=== PATIENT | male | born 1970 | race Caucasian/White ===

== ENCOUNTER 2018-02-16 10:37 | Inpatient (IN) | payer MEDICARE, MEDICAID ==
[~2018-02-16] VITALS: Ht 172.7 cm; Wt 64.5 kg
--- NOTE | 2018-02-16 10:40 | NUR ---
PT ARRIVED BY EMS FROM [facility] ON A 0516
[2018-02-16] MEDS ORDERED: HYDR-3686 PO (11:24)
[2018-02-16] MEDS ORDERED: CLOZ200T PO (11:24)
[2018-02-16] MEDS ORDERED: CLON-528 PO (11:24)
--- NOTE | 2018-02-16 11:30 | NUR ---
PT CHANGED IN TO GREEN [facility]OT[facility] WITH ASSISTNACE FROM BROTHER CHET PT NOT ANSWERING QUESTIONS
--- NOTE | 2018-02-16 11:50 | NUR ---
ROUNDED TO EVALUATE PT
[2018-02-16 13:09] LABS: BASOPHILS # (AUTO) 0.1 X10'3 (0-0.2); BASOPHILS % (AUTO) 0.7 % (0-1); EOSINOPHILS # (AUTO) 0.1 X10'3 (0-0.9); EOSINOPHILS % (AUTO) 0.4 % (0-6); HEMATOCRIT 44.8 % (42.0-52.0); HEMOGLOBIN 14.9 g/dl (14.0-17.9); LYMPHOCYTES # (AUTO) 1.7 X10'3 (1.1-4.8); LYMPHOCYTES % (AUTO) 11.1 % (21-51); MEAN CORPUSCULAR HEMOGLOBIN 31.1 PG (27.0-31.0); MEAN CORPUSCULAR HGB CONC 33.2 % (33.0-36.5); MEAN CORPUSCULAR VOLUME 93.7 FL (78-98); MEAN PLATELET VOLUME 9.8 FL (7.4-10.4); MONOCYTES % (AUTO) 6.4 % (2-12); NEUTROPHILS # (AUTO) 12.3 X10'3 (1.8-7.7); NEUTROPHILS % (AUTO) 81.4 % (42-75); PLATELET COUNT 231 X10'3 (140-440); RED BLOOD COUNT 4.79 X10'6 (4.70-6.10); RED CELL DISTRIBUTION WIDTH 12.3 % (11.5-14.5); WHITE BLOOD COUNT 15.2 X10'3 (4.5-11.0)
[2018-02-16] MEDS ORDERED: clonazePAM 0.5mg tablet PO PRN (13:15)
[2018-02-16] MEDS ORDERED: hydrOXYzine 25 MG tablet PO PRN (13:15)
[2018-02-16 13:19] LABS: ALANINE AMINOTRANSFERASE 112 U/L (12-78); ALBUMIN 3.3 G/DL (3.4-5.0); ALBUMIN/GLOBULIN RATIO 1.3 (1.1-1.5); ALKALINE PHOSPHATASE 59 IU/L (46-116); ANION GAP 17 (8-16); ASPARTATE AMINO TRANSFERASE 200 U/L (10-37); BILIRUBIN,TOTAL 1.5 MG/DL (0.1-1.0); BLOOD UREA NITROGEN 17 MG/DL (7-18); CALCIUM 8.4 MG/DL (8.5-10.1); CHLORIDE 95 MMOL/L (99-107); CREATININE 1.06 MG/DL (0.60-1.10); ETHANOL < 0.010 GM/DL (0.0-0.010); GLUCOSE 61 MG/DL (70-104); SODIUM 134 MMOL/L (135-145); TOTAL CARBON DIOXIDE 22.5 MMOL/L (24-32); TOTAL PROTEIN 5.9 G/DL (6.4-8.2); eGFR 75 ML/MIN
--- NOTE | 2018-02-16 13:19 | NUR ---
CONTACTS FATHER RUBI AGUIRREER [phone] BROTHER IN LAW [phone] COLD PRESS OPERATOR ZAC [phone]
[2018-02-16 13:24] LABS: POTASSIUM 2.6 MMOL/L (3.5-5.1)
[2018-02-16] MEDS ORDERED: LORazepam 2 mg/ml vial IV STA (13:39)
[2018-02-16] MEDS ORDERED: LORazepam 2 mg/ml vial ONE ×2 (13:42→13:45)
[2018-02-16] MEDS ORDERED: normal saline 1000ML IV soln IVB ONE (13:45)
[2018-02-16] MEDS ORDERED: potassium Cl 20 mEq SR tablet PO ONE (13:45)
[2018-02-16] MEDS ORDERED: potassium 10mEq/100ml NS w/LIDOcaine (10mg/bag) IV ONE (13:45)
[2018-02-16] MEDS ORDERED: LORazepam 2 mg/ml vial IV ONE ×2 (14:05→16:10)
[2018-02-16 14:15] LABS: CLARITY,URINE SLIGHTLY CLOUDY (Clear); COLOR,URINE YELLOW (Yellow); GLUCOSE, URINE NEGATIVE (Neg); KETONES,URINE >=80 mg/dl (Neg); LEUKOCYTE ESTERASE ,URINE NEGATIVE (Neg); NITRITES, URINE NEGATIVE (Neg); OCCULT BLOOD,URINE LARGE (Neg); PH,URINE 5.5 (4.8-8.0); PROTEIN,URINE TRACE mg/dl (Neg); UROBILINOGEN,URINE 0.2 E.U/dL (0.2-1.0)
--- NOTE | 2018-02-16 14:19 | NUR ---
pt started to have seizures and had k of 2.6 ativan given for seizure and potassim started for k notfied and orders recived . f/c placed chest xray taken
[2018-02-16 14:20] LABS: UA COLLECTION TYPE CLN CATCH MIDSTREAM
[2018-02-16 14:21] LABS: AMORPHOUS URATES 1+; BACTERIA,URINE NONE SEEN /HPF (Neg); MUCUS STRANDS FEW /LPF (Neg); SQUAMOUS EPITHELIAL CELL,UR FEW /LPF (FEW); URINE AMPHETAMINE SCREEN NEGATIVE (Neg); URINE BARBITUATE SCREEN NEGATIVE (Neg); URINE BENZODIAZEPINES SCREEN NEGATIVE (Neg); URINE CANNABINOID SCREEN NEGATIVE (Neg); URINE COCAINE SCREEN NEGATIVE (Neg); URINE METHADONE SCREEN NEGATIVE (Neg); URINE OPIATE SCREEN NEGATIVE (Neg); URINE PHENCYCLIDINE SCREEN NEGATIVE (Neg); WBC,URINE 0-4 /HPF (0-4)
[2018-02-16 14:22] LABS: SPERM FEW /HPF (NEGATIVE)
[2018-02-16] MEDS ORDERED: dextrose 50%-water 50ml dispensing syringe IV ONE ×3 (14:28→18:50)
[2018-02-16 14:34] LABS: MAGNESIUM 2.3 MG/DL (1.5-2.4)
--- NOTE | 2018-02-16 14:50 | NUR ---
1 AMP OF D50 GIVEN FOR BLOOD SUGER OF 61
--- NOTE | 2018-02-16 15:21 | NUR ---
BLOOD SUGAR RECHECKED 91
--- NOTE | 2018-02-16 15:30 | NUR ---
pt more awake now but not following comands and keeps tring to pull at lines
[2018-02-16] MEDS ORDERED: normal saline 1000ML IV soln IV ONE (15:35)
[2018-02-16] MEDS ORDERED: CefTRIAXone 2gm/D5W 50ml 50 ML IV ONE (15:35)
--- NOTE | 2018-02-16 16:21 | NUR ---
AT BEDSIDE TO PERFORM LP
[2018-02-16] MEDS ORDERED: normal saline 1000ml 1,000 ML IV SCH (16:28)
[2018-02-16] MEDS ORDERED: acetaminophen 650mg rectal suppository RC PRN (16:30)
[2018-02-16] MEDS ORDERED: ondansetron/PF 4mg/2ml inj IV PRN (16:30)
[2018-02-16] MEDS ORDERED: mag hydrox/Alum hydrox/simeth 30ml oral suspension PO PRN (16:30)
[2018-02-16] MEDS: vancomycin/NS 1 GM ADD-VANTAGE 250 ML IV SCH (17:14)
[2018-02-16 17:21] LABS: APPEARANCE,CSF CLEAR; CSF RBC 4 /CU MM (0); CSF SUPERNATANT COLOR COLORLESS; CSF VOLUME 6 ML; CSF WBC CT 0 /CU MM (0-5); TUBE# COUNTED 1
[2018-02-16] MEDS ORDERED: acyclovir inj 1,000 MG in normal saline 250ml IV soln 230 ML IV ONE (17:30)
[2018-02-16 17:42] LABS: GLUCOSE,CSF 63 MG/DL (40-75); TOTAL PROTEIN,CSF 67 MG/DL (15-45)
[2018-02-16] MEDS ORDERED: sodium chloride inj. 154 MEQ in Dextrose 10%-water IV solution 961.5 ML IV SCH (18:20)
--- NOTE | 2018-02-16 18:51 | NUR ---
TELEPHONE CALL TO DR DOBBS AT THIS TIME REGARDING BLOOD SUGAR 54 AT THIS TIME, PER MD POLK TO ORDER D50 IVP ONCE, THEN RECHECK BS, IF BS NORMAL THEN CHANGE FLUIDS FROM D10 TO NS. IF NOT NORMAL THEN SWITCH FROM D10 TO D5.
[2018-02-16] MEDS: piperacillin/tazo 3.375gm/50ml 50 ML IV SCH (20:45)
[2018-02-16] MEDS ORDERED: clozapine 100mg tablet PO SCH (21:00)
[2018-02-16] MEDS: dextrose 5%-normal saline 1,000 ML IV SCH (22:19)
--- NOTE | 2018-02-16 23:55 | NUR ---
day reassessments not done
[2018-02-17] MEDS: acyclovir inj 1,000 MG in normal saline 250ml IV soln 230 ML IV SCH ×3 (00:04→16:20)
[2018-02-17] MEDS: piperacillin/tazo 3.375gm/50ml 50 ML IV SCH ×2 (03:26→08:53)
[2018-02-17] MEDS: vancomycin/NS 1 GM ADD-VANTAGE 250 ML IV SCH (05:19)
--- NOTE | 2018-02-17 09:17 | NUR ---
Dr. Payne at bedside.
--- NOTE | 2018-02-17 09:18 | NUR ---
blood draw for cbc not done last night,[facility] made aware,Dr. Payne aware.
[2018-02-17 09:42] LABS: BASOPHILS # (AUTO) 0.2 X10'3 (0-0.2); BASOPHILS % (AUTO) 1.5 % (0-1); EOSINOPHILS # (AUTO) 0.1 X10'3 (0-0.9); EOSINOPHILS % (AUTO) 0.4 % (0-6); HEMATOCRIT 41.8 % (42.0-52.0); HEMOGLOBIN 14.1 g/dl (14.0-17.9); LYMPHOCYTES # (AUTO) 1.5 X10'3 (1.1-4.8); LYMPHOCYTES % (AUTO) 11.1 % (21-51); MEAN CORPUSCULAR HEMOGLOBIN 31.6 PG (27.0-31.0); MEAN CORPUSCULAR HGB CONC 33.6 % (33.0-36.5); MEAN PLATELET VOLUME 9.4 FL (7.4-10.4); MONOCYTES # (AUTO) 0.9 X10'3 (0-0.9); MONOCYTES % (AUTO) 6.7 % (2-12); NEUTROPHILS # (AUTO) 10.4 X10'3 (1.8-7.7); NEUTROPHILS % (AUTO) 80.3 % (42-75); PLATELET COUNT 208 X10'3 (140-440); RED BLOOD COUNT 4.45 X10'6 (4.70-6.10); RED CELL DISTRIBUTION WIDTH 12.4 % (11.5-14.5); WHITE BLOOD COUNT 13.1 X10'3 (4.5-11.0)
[2018-02-17 10:01] LABS: ALANINE AMINOTRANSFERASE 96 U/L (12-78); ALBUMIN 2.7 G/DL (3.4-5.0); ALBUMIN/GLOBULIN RATIO 1.1 (1.1-1.5); ALKALINE PHOSPHATASE 50 IU/L (46-116); ANION GAP 17 (8-16); ASPARTATE AMINO TRANSFERASE 148 U/L (10-37); BILIRUBIN,TOTAL 1.2 MG/DL (0.1-1.0); BLOOD UREA NITROGEN 8 MG/DL (7-18); BUN/CREATININE RATIO 6.6 (5.4-32.0); CALCIUM 8.2 MG/DL (8.5-10.1); CHLORIDE 105 MMOL/L (99-107); CREATININE 1.22 MG/DL (0.60-1.10); GLUCOSE 91 MG/DL (70-104); POTASSIUM 3.1 MMOL/L (3.5-5.1); SODIUM 144 MMOL/L (135-145); TOTAL CARBON DIOXIDE 22.5 MMOL/L (24-32); TOTAL PROTEIN 5.1 G/DL (6.4-8.2); eGFR 63 ML/MIN
--- NOTE | 2018-02-17 11:01 | NUR ---
SEIZURE PADS ON.
--- NOTE | 2018-02-17 11:01 | NUR ---
PATIENT ON BED AWAKE,K 3.1,WILL REPLACE PER PROTOCOL. Addendum: 02/17/18 at 1754 by YONATAN PT NOT ON K PROTOCOL.
--- NOTE | 2018-02-17 13:45 | NUR ---
UNABLE TO OBTAIN UA PT URINATED ON FLOOR AND IS IRRATIONAL
--- NOTE | 2018-02-17 14:30 | NUR ---
PATIENT PLACED ON SOFT MITTEN RESTRAINT WITH RLE RESTRAINT SINCE PT UNCOOPERATIV PULLING LINES PER DR. DOBBS.
[2018-02-17] MEDS ORDERED: LORazepam 2 mg/ml vial IM ONE (14:45)
[2018-02-17] MEDS ORDERED: potassium Cl 20 mEq SR tablet PO PRN ×4 (15:55→17:40)
--- NOTE | 2018-02-17 16:00 | NUR ---
POTASSIUM REPLACEMENT ORDER OBTAINED.
--- NOTE | 2018-02-17 16:03 | NUR ---
PLACED A SALAZAR CATH,PATIENT TOLERATED WELL.
--- NOTE | 2018-02-17 16:08 | NUR ---
patient still kept pulling lines,paged Dr Payne to obtain an order for 4 point restraint.
--- NOTE | 2018-02-17 16:10 | NUR ---
Obtained an order for a 4 point restraint.
[2018-02-17] MEDS ORDERED: vancomycin/NS 1 GM ADD-VANTAGE 250 ML IV SCH (17:00)
[2018-02-17 17:11] LABS: CLARITY,URINE CLEAR (Clear); COLOR,URINE YELLOW (Yellow); GLUCOSE, URINE NEGATIVE (Neg); KETONES,URINE 40 mg/dl (Neg); LEUKOCYTE ESTERASE ,URINE NEGATIVE (Neg); NITRITES, URINE NEGATIVE (Neg); OCCULT BLOOD,URINE TRACE-INTACT (Neg); PROTEIN,URINE NEGATIVE (Neg); UROBILINOGEN,URINE 0.2 E.U/dL (0.2-1.0)
[2018-02-17 17:13] LABS: UA COLLECTION TYPE FOLEY CATH
[2018-02-17 17:23] LABS: BACTERIA,URINE NONE SEEN /HPF (Neg); RBC,URINE 0-2 /HPF (0-2); WBC,URINE 0-4 /HPF (0-4)
[2018-02-17 17:24] LABS: HYALINE CASTS 0-3 /LPF (NEGATIVE); SQUAMOUS EPITHELIAL CELL,UR NONE SEEN /LPF (FEW)
--- NOTE | 2018-02-17 17:51 | NUR ---
RESTRAINT ON LEFT LOWER EXTREMITY DC'D.
--- NOTE | 2018-02-17 17:53 | NUR ---
POTASSIUM REPLACEMENT NOT AVAILABLE,CALLED PHARMACY.
--- NOTE | 2018-02-17 18:00 | NUR ---
SPOKE TO DR. DOBBS REGARDING PATIENT'S DIET,STILL NPO SINCE LAST NIGHT.PER MD SHE WILL COME DOWN TO SEE PATIENT TONIGHT AND TO KEEP PATIENT NPO.
[2018-02-17] MEDS: dextrose 5%-normal saline 1,000 ML IV SCH (18:05)
--- NOTE | 2018-02-17 18:16 | NUR ---
SPOKE TO LILA CLINTON AND VIRIDIANA TO DETERMINE THAT PTS RESTRAINTS ARE NONBEHAVIORAL DUE TO BEING PLACED DUE TO PT PULLING LINES AND SALAZAR, MAKING HIM A DANGER TO SELF. Q2HR VITALS NECESSARY AT THIS POINT
--- NOTE | 2018-02-17 18:49 | NUR ---
DR DOBBS AT BEDSIDE. GAVE REPORT TO HER. STATES SOON [facility] RESUILTS PT IS MEDICALLY CLEARED TO BEHAVIORAL HEALTH
[2018-02-17] MEDS: potassium Cl 40MEQ/NS 500ml 500 ML IV PRN (18:55)
[2018-02-18] MEDS: acyclovir inj 1,000 MG in normal saline 250ml IV soln 230 ML IV SCH ×3 (00:51→14:09)
[2018-02-18] MEDS ORDERED: VANCOMYCIN LEVEL IV ONE (04:30)
--- NOTE | 2018-02-18 07:33 | NUR ---
PT RESTING IN BED, REPEATEDLY SAYING "NO" AND "I'M SORRY"/ PT WILL NOT RESPOND TO QUESTIONS, AND IS STILL IN 3 POINT RESTRAINTS WITH MITTENS. RESTRAINTS STILL INDICATED ON ASSESSMENT. RESTRAINTS RELEASED AND REPLACED. CIRULATION INTACT.
[2018-02-18] MEDS ORDERED: K and/or MAG REPLACEMENT MC SCH ×2 (08:00)
[2018-02-18] MEDS: dextrose 5%-normal saline 1,000 ML IV SCH (09:17)
[2018-02-18] MEDS ORDERED: dextrose 50%-water 50ml dispensing syringe IV ONE (09:30)
[2018-02-18 10:56] LABS: BASOPHILS # (AUTO) 0.2 X10'3 (0-0.2); BASOPHILS % (AUTO) 1.4 % (0-1); EOSINOPHILS # (AUTO) 0.1 X10'3 (0-0.9); EOSINOPHILS % (AUTO) 0.9 % (0-6); HEMATOCRIT 40.6 % (42.0-52.0); HEMOGLOBIN 13.8 g/dl (14.0-17.9); LYMPHOCYTES # (AUTO) 1.3 X10'3 (1.1-4.8); LYMPHOCYTES % (AUTO) 12.4 % (21-51); MEAN CORPUSCULAR HEMOGLOBIN 31.5 PG (27.0-31.0); MEAN CORPUSCULAR VOLUME 92.7 FL (78-98); MEAN PLATELET VOLUME 9.7 FL (7.4-10.4); MONOCYTES # (AUTO) 0.9 X10'3 (0-0.9); MONOCYTES % (AUTO) 8.7 % (2-12); NEUTROPHILS # (AUTO) 8.3 X10'3 (1.8-7.7); NEUTROPHILS % (AUTO) 76.6 % (42-75); PLATELET COUNT 213 X10'3 (140-440); RED BLOOD COUNT 4.37 X10'6 (4.70-6.10); RED CELL DISTRIBUTION WIDTH 12.2 % (11.5-14.5); WHITE BLOOD COUNT 10.8 X10'3 (4.5-11.0)
[2018-02-18 11:19] LABS: ALANINE AMINOTRANSFERASE 91 U/L (12-78); ALBUMIN 2.6 G/DL (3.4-5.0); ALKALINE PHOSPHATASE 50 IU/L (46-116); ANION GAP 17 (8-16); ASPARTATE AMINO TRANSFERASE 121 U/L (10-37); BLOOD UREA NITROGEN 5 MG/DL (7-18); BUN/CREATININE RATIO 5.4 (5.4-32.0); CALCIUM 8.3 MG/DL (8.5-10.1); CHLORIDE 108 MMOL/L (99-107); CREATININE 0.93 MG/DL (0.60-1.10); GLUCOSE 85 MG/DL (70-104); MAGNESIUM 1.9 MG/DL (1.5-2.4); POTASSIUM 3.2 MMOL/L (3.5-5.1); SODIUM 147 MMOL/L (135-145); TOTAL CARBON DIOXIDE 21.8 MMOL/L (24-32); TOTAL PROTEIN 5.2 G/DL (6.4-8.2); eGFR 87 ML/MIN
--- NOTE | 2018-02-18 12:57 | NUR ---
CALLED ABOUT IV IN MD WILMER APPROVED OF USING IV.
--- NOTE | 2018-02-18 12:57 | NUR ---
Patient in room ED 20. I have received report from Reina and had the opportunity to ask questions and assume patient care.
[2018-02-18] MEDS: K and/or MAG REPLACEMENT MC SCH (13:44)
[2018-02-18 13:55] VITALS: BP 101/54
--- NOTE | 2018-02-18 15:03 | NUR ---
Plastic Welding Machine Operator Carlitos confirmed that pt has no known allergies to medication, food, iodine, etc. She has worked with pt for over 5 years and taken to pt to all medical appointments.
[2018-02-18] MEDS: potassium Cl 40MEQ/NS 500ml 500 ML IV PRN (16:43)
[2018-02-18] MEDS ORDERED: diatr meglu/diatrizoate 30ml oral sol.-(3 dose) bottle PO PRN (17:10)
--- NOTE | 2018-02-18 18:30 | NUR ---
Patient in room PCU 3026. I have received report from [facility] and had the opportunity to ask questions and assume patient care.
[2018-02-18 19:20] VITALS: BP 124/61
--- NOTE | 2018-02-18 19:30 | NUR ---
PT NON VERBAL AT THIS TIME. WILL NOT ANSWER ANY QUESTIONS, WILL SAY HIS NAME. PT WILL OPEN HIS EYES AT TIMES. WILL NOT OPEN HIS EYES WHEN ASKED TO DO SO BY NURSING. PT CALM. NO ATTEMPTS TO PULL AT IV OR CATHETER. NO ATTEMPTS TO HARM HIMSELF OR STAFF. ORDERS FOR RESTRAINTS NOT RENEWED WITHIN 24 HOURS AND A SITTER IS PRESENT AT THE BEDSIDE. WRIST AND MITTEN RESTRAINTS REMOVED, ANKLE RESTRAINTS NOT IN PLACE UPON ASSESSMENT. WILL CONTINUE TO MONITOR POTENTIAL NEED FOR RESTRAINTS.
--- NOTE | 2018-02-18 22:30 | NUR ---
UPON ATTEMPTING TO ADMINISTER GASTROVIEW FOR CT SCAN IN AM, IT WAS OBSERVED THAT THE PT APPEARED TO BE HOLDING SOMETHING IN HIS MOUTH. PT NOT ABLE TO FOLLOW COMMANDS TO OPEN MOUTH, YANKER SUCTION PERFORMED FOR A LARGE AMOUNT OF ORAL SECRETIONS. PT UNABLE TO FOLLOW THE COMMAND TO SWALLOW HIS OWN SECRETIONS OR GASTROVIEW. DR HEWITT INFORMED OF POTENTIAL ASPIRATION RISK IN REGARDS TO GASTROVIEW, ORDERS OBTAINED TO HOLD GASTROVIEW UNTIL AM. WILL CONTINUE TO SUCTION THE PATIENT'S ORAL SECRETIONS NEEDED.
[2018-02-18] MEDS ORDERED: dextrose ORAL solution 15 GM/59 ML bottle PO PRN ×2 (22:35)
[2018-02-18] MEDS ORDERED: dextrose 50%-water 50ml dispensing syringe IV PRN ×2 (22:35)
[2018-02-18] MEDS ORDERED: glucagon, human recombinant 1mg kit SUBCUT PRN (22:35)
[2018-02-18 23:00] VITALS: BP 126/69
[2018-02-19 02:00] VITALS: BP 114/64
[2018-02-19 05:02] LABS: BASOPHILS % (AUTO) 0.4 % (0-1); EOSINOPHILS # (AUTO) 0.1 X10'3 (0-0.9); EOSINOPHILS % (AUTO) 1.1 % (0-6); HEMATOCRIT 42.2 % (42.0-52.0); HEMOGLOBIN 13.9 g/dl (14.0-17.9); LYMPHOCYTES # (AUTO) 1.2 X10'3 (1.1-4.8); LYMPHOCYTES % (AUTO) 12.8 % (21-51); MEAN PLATELET VOLUME 9.4 FL (7.4-10.4); MONOCYTES # (AUTO) 0.7 X10'3 (0-0.9); MONOCYTES % (AUTO) 7.2 % (2-12); NEUTROPHILS # (AUTO) 7.4 X10'3 (1.8-7.7); NEUTROPHILS % (AUTO) 78.5 % (42-75); PLATELET COUNT 263 X10'3 (140-440); RED BLOOD COUNT 4.49 X10'6 (4.70-6.10); RED CELL DISTRIBUTION WIDTH 12.4 % (11.5-14.5); WHITE BLOOD COUNT 9.4 X10'3 (4.5-11.0)
[2018-02-19 05:20] LABS: ALANINE AMINOTRANSFERASE 74 U/L (12-78); ALBUMIN 2.3 G/DL (3.4-5.0); ALBUMIN/GLOBULIN RATIO 0.9 (1.1-1.5); ALKALINE PHOSPHATASE 49 IU/L (46-116); ANION GAP 15 (8-16); ASPARTATE AMINO TRANSFERASE 62 U/L (10-37); BILIRUBIN,TOTAL 0.8 MG/DL (0.1-1.0); BLOOD UREA NITROGEN 5 MG/DL (7-18); BUN/CREATININE RATIO 6.1 (5.4-32.0); CHLORIDE 108 MMOL/L (99-107); CREATININE 0.82 MG/DL (0.60-1.10); GLUCOSE 93 MG/DL (70-104); SODIUM 146 MMOL/L (135-145); TOTAL CARBON DIOXIDE 22.7 MMOL/L (24-32); TOTAL PROTEIN 4.9 G/DL (6.4-8.2); eGFR > 90 ML/MIN
[2018-02-19 05:22] LABS: POTASSIUM 2.6 MMOL/L (3.5-5.1)
[2018-02-19] MEDS: dextrose 5%-normal saline 1,000 ML IV SCH (05:53)
[2018-02-19] MEDS: potassium Cl 40MEQ/NS 500ml 500 ML IV PRN ×3 (05:54→23:42)
[2018-02-19 06:00] VITALS: BP 114/68
--- NOTE | 2018-02-19 06:30 | NUR ---
Patient in room PCU 3026. I have received report from Anna EMMANUEL and had the opportunity to ask questions and assume patient care.
--- NOTE | 2018-02-19 06:45 | NUR ---
Problems reprioritized. Patient report given, questions answered & plan of care reviewed with ALBERTO.
[2018-02-19] MEDS: K and/or MAG REPLACEMENT MC SCH (08:00)
[2018-02-19] MEDS: acyclovir inj 1,000 MG in normal saline 250ml IV soln 230 ML IV SCH ×3 (08:32)
[2018-02-19] MEDS: LORazepam 2 mg/ml vial IV PRN ×2 (08:32→17:38)
[2018-02-19 10:24] LABS: CLARITY,URINE TURBID (Clear); COLOR,URINE YELLOW (Yellow); GLUCOSE, URINE NEGATIVE (Neg); KETONES,URINE >=80 mg/dl (Neg); LEUKOCYTE ESTERASE ,URINE NEGATIVE (Neg); NITRITES, URINE NEGATIVE (Neg); OCCULT BLOOD,URINE LARGE (Neg); PROTEIN,URINE TRACE mg/dl (Neg); UROBILINOGEN,URINE 0.2 E.U/dL (0.2-1.0)
[2018-02-19 10:26] LABS: UA COLLECTION TYPE NON-SPECIFIED
[2018-02-19 11:00] VITALS: BP 123/65
[2018-02-19 11:01] LABS: RBC,URINE 0-2 /HPF (0-2); WBC,URINE 0-4 /HPF (0-4)
[2018-02-19 11:02] LABS: BACTERIA,URINE NONE SEEN /HPF (Neg); SQUAMOUS EPITHELIAL CELL,UR NONE SEEN /LPF (FEW)
--- NOTE | 2018-02-19 13:05 | NUR ---
Alejandro trigger 11: Skin intact. BSS pending diet advancement per RN; currently NPO. Addendum: 02/19/18 at [address] Amended: Links added.
[2018-02-19 15:00] VITALS: BP 106/66
--- NOTE | 2018-02-19 17:03 | NUR ---
Paged Dr. Curtis: PAGER ID: [phone] MESSAGE: Anuradha [facility] [phone]. RE: Reji Sosa [phone]. Acyclovir will be D/C'd? There was a 1600 dose due. Please advise. MRI screening form completed and faxed. Will admin IV Ativan prior to imaging study. Thank you.
--- NOTE | 2018-02-19 18:00 | NUR ---
Orientee documentation: I have reviewed and agree with all interventions, assessments performed and documented by Jenna EMMANUEL. Orintee Medication Administration: For this medication-pass time frame, all medication were reviewed, dispensed, administered and documented per hospital policy by Jenna EMMANUEL
--- NOTE | 2018-02-19 18:30 | NUR ---
Problems reprioritized. Patient report given, questions answered & plan of care reviewed with Vicky EMMANUEL.
[2018-02-19 23:00] VITALS: BP 100/63
[2018-02-20 03:00] VITALS: BP 123/64
[2018-02-20 05:08] LABS: BASOPHILS % (AUTO) 0.3 % (0-1); EOSINOPHILS # (AUTO) 0.1 X10'3 (0-0.9); EOSINOPHILS % (AUTO) 0.8 % (0-6); HEMATOCRIT 37.7 % (42.0-52.0); HEMOGLOBIN 12.9 g/dl (14.0-17.9); LYMPHOCYTES # (AUTO) 1.4 X10'3 (1.1-4.8); LYMPHOCYTES % (AUTO) 16.2 % (21-51); MEAN CORPUSCULAR HEMOGLOBIN 31.8 PG (27.0-31.0); MEAN CORPUSCULAR HGB CONC 34.2 % (33.0-36.5); MEAN CORPUSCULAR VOLUME 92.9 FL (78-98); MEAN PLATELET VOLUME 9.9 FL (7.4-10.4); MONOCYTES # (AUTO) 0.7 X10'3 (0-0.9); MONOCYTES % (AUTO) 7.9 % (2-12); NEUTROPHILS # (AUTO) 6.7 X10'3 (1.8-7.7); NEUTROPHILS % (AUTO) 74.8 % (42-75); PLATELET COUNT 235 X10'3 (140-440); RED BLOOD COUNT 4.06 X10'6 (4.70-6.10); RED CELL DISTRIBUTION WIDTH 12.3 % (11.5-14.5); WHITE BLOOD COUNT 8.9 X10'3 (4.5-11.0)
[2018-02-20 05:16] LABS: ALANINE AMINOTRANSFERASE 64 U/L (12-78); ALBUMIN 2.3 G/DL (3.4-5.0); ALBUMIN/GLOBULIN RATIO 0.9 (1.1-1.5); ALKALINE PHOSPHATASE 46 IU/L (46-116); ANION GAP 15 (8-16); ASPARTATE AMINO TRANSFERASE 45 U/L (10-37); BILIRUBIN,TOTAL 0.7 MG/DL (0.1-1.0); BLOOD UREA NITROGEN 7 MG/DL (7-18); BUN/CREATININE RATIO 8.2 (5.4-32.0); CHLORIDE 112 MMOL/L (99-107); CREATININE 0.85 MG/DL (0.60-1.10); GLUCOSE 85 MG/DL (70-104); MAGNESIUM 1.7 MG/DL (1.5-2.4); POTASSIUM 3.5 MMOL/L (3.5-5.1); SODIUM 147 MMOL/L (135-145); TOTAL CARBON DIOXIDE 20.3 MMOL/L (24-32); eGFR > 90 ML/MIN
[2018-02-20 06:00] VITALS: BP 121/58
--- NOTE | 2018-02-20 06:10 | NUR ---
Problems reprioritized. Patient report given, questions answered & plan of care reviewed with Anuradha EMMANUEL.
--- NOTE | 2018-02-20 06:11 | NUR ---
Problems reprioritized. Patient report given, questions answered & plan of care reviewed with Anuradha EMMANUEL. [place] documentation: I have reviewed and agree with all interventions, assessments performed and documented by Corazon EMMANUEL.
--- NOTE | 2018-02-20 06:12 | NUR ---
pt rested throughout night, got a bit restless this am, was hitting himself in the head this am and hitting his head on the bed. Sitter at bedside. IV in right tibia, SCD sleeve over IV for protection but not turned on.
--- NOTE | 2018-02-20 06:20 | NUR ---
Patient in room PCU 3026. I have received report from Andrew EMMANUEL and had the opportunity to ask questions and assume patient care. Patient in bed. Hitting head with fists. Will continue to monitor. Will look at emar and see if there are any PRN meds for agitation.
[2018-02-20] MEDS: K and/or MAG REPLACEMENT MC SCH (08:00)
[2018-02-20 08:48] LABS: CSF WEST NILE VIRUS, IGG Negative (Negative)
[2018-02-20] MEDS: dextrose 5%-normal saline 1,000 ML IV SCH (09:29)
[2018-02-20 11:00] VITALS: BP 100/58
[2018-02-20 11:20] LABS: CSF WEST NILE VIRUS, IGM Negative (Negative); VDRL, CSF Non Reactive (Non Rea:<1:1)
--- NOTE | 2018-02-20 16:33 | NUR ---
SS met w/pt at bedside, pt alert but very disoriented, cannot respond to verbal directions, does not seem to recognize his name being called or names of relatives. Pt also appears to exhibit bxs commonly associated w/catatonia-akinetic type (no eye contact, incontinence, hydration via IV line as pt does not eat/drinks, staring at time, mumbling to self, and purposeless movements of arms). T/C w/family member, sister reports that pt has been diagnosed w/schizophrenia at age 23, has had multiple admissions to [facility] in [facility], at one time was conserved (LPS) and pt's father was the conservator. Pt's sister also reports that pt had been doing fairly well for past 10 years, family noted something off this last , last Monday pt presented @ [facility] and was 5150'd but brought to [facility] for medical clearance. Per consultation w/attending physician, pt is medically cleared for d/c, SS will facilitate access to [facility] for 5150 re-eval due to pt being gravely disabled as a result of his MH condition. SS will also contact pt's [facility] manager field service tomorrow to coordinate pt's access to additional support services via [facility]-possibly care home placement.
[2018-02-20 17:00] VITALS: BP 113/61
--- NOTE | 2018-02-20 18:30 | NUR ---
Patient in room PCU 3026. I have received report from Tami Robles and had the opportunity to ask questions and assume patient care WITH YECENIA ROBLES
[2018-02-20 19:11] LABS: HSV 1 PCR Negative (Negative); HSV 2 PCR Negative (Negative)
--- NOTE | 2018-02-20 21:30 | NUR ---
iv IN RIGHT LEG INFILTRATED. NEW piv STARTED RIGHT FOREARM, 3 ATTEMPTS. PT YELLED OUT IN PAIN DURING IV ATTEMPTS AND SAID "I AM SCARED" TWICE. ATTEMPTED TO REASSURE PATIENT, NO CLEAR SIGN THAT HE UNDERSTOOD.
[2018-02-21] MEDS: LORazepam 2 mg/ml vial IV PRN ×2 (00:33→21:39)
--- NOTE | 2018-02-21 00:33 | NUR ---
NOTIFIED BY SITTER THAT AGITATION WAS INCREASING AND PATIENT WAS HITTING HIMSELF IN THE HEAD FAIRLY HARD. ATIVAN GIVEN. ATTEMPTED TO GET PATIENT TO VERBALIZE PROBLEM, WHETHER HE HAD PAIN OR HEADACHE OR WAS JUST RESTLESS, BUT HE DID NOT ANSWER ANY QUESTIONS.
--- NOTE | 2018-02-21 00:51 | NUR ---
Notified Janice WONG about IV infiltrated that still leaking since 2129
[2018-02-21 03:00] VITALS: BP 104/53
[2018-02-21 05:01] LABS: BASOPHILS % (AUTO) 0.4 % (0-1); EOSINOPHILS # (AUTO) 0.1 X10'3 (0-0.9); EOSINOPHILS % (AUTO) 0.9 % (0-6); HEMATOCRIT 36.5 % (42.0-52.0); HEMOGLOBIN 12.6 g/dl (14.0-17.9); LYMPHOCYTES # (AUTO) 1.9 X10'3 (1.1-4.8); LYMPHOCYTES % (AUTO) 23.7 % (21-51); MEAN CORPUSCULAR HEMOGLOBIN 32.4 PG (27.0-31.0); MEAN CORPUSCULAR HGB CONC 34.6 % (33.0-36.5); MEAN CORPUSCULAR VOLUME 93.7 FL (78-98); MEAN PLATELET VOLUME 9.1 FL (7.4-10.4); MONOCYTES # (AUTO) 0.8 X10'3 (0-0.9); MONOCYTES % (AUTO) 9.7 % (2-12); NEUTROPHILS # (AUTO) 5.2 X10'3 (1.8-7.7); NEUTROPHILS % (AUTO) 65.3 % (42-75); PLATELET COUNT 198 X10'3 (140-440); RED CELL DISTRIBUTION WIDTH 13.3 % (11.5-14.5); WHITE BLOOD COUNT 7.9 X10'3 (4.5-11.0)
[2018-02-21 05:13] LABS: ALANINE AMINOTRANSFERASE 54 U/L (12-78); ALBUMIN 2.3 G/DL (3.4-5.0); ALBUMIN/GLOBULIN RATIO 0.9 (1.1-1.5); ALKALINE PHOSPHATASE 44 IU/L (46-116); ANION GAP 11 (8-16); ASPARTATE AMINO TRANSFERASE 29 U/L (10-37); BILIRUBIN,TOTAL 0.6 MG/DL (0.1-1.0); BLOOD UREA NITROGEN 12 MG/DL (7-18); CALCIUM 7.9 MG/DL (8.5-10.1); CHLORIDE 114 MMOL/L (99-107); CREATININE 0.92 MG/DL (0.60-1.10); GLUCOSE 101 MG/DL (70-104); MAGNESIUM 1.8 MG/DL (1.5-2.4); POTASSIUM 3.1 MMOL/L (3.5-5.1); SODIUM 148 MMOL/L (135-145); TOTAL CARBON DIOXIDE 23.3 MMOL/L (24-32); TOTAL PROTEIN 4.9 G/DL (6.4-8.2); eGFR 88 ML/MIN
[2018-02-21] MEDS: dextrose 5%-normal saline 1,000 ML IV SCH (05:29)
--- NOTE | 2018-02-21 05:39 | NUR ---
DID ORAL CARE WITH PATIENT, HE SEEMED TO LIKE THE LEMON SWABS. TRIED A SPOONFUL OF WATER AND HE SPIT IT OUT. TRIED ONE ICE CHIP AND ALTHOUGH HE LIKED IT ON HIS LIPS, ONCE IT WAS IN HIS MOUTH HE SPIT IT OUT. SALAZAR DRAINING JEANETTE URINE.
[2018-02-21 06:00] VITALS: BP 111/59
--- NOTE | 2018-02-21 06:22 | NUR ---
oRIENTEE documentation: I have reviewed and agree with all interventions, assessments performed and documented by YECENIA EMMANUEL.
--- NOTE | 2018-02-21 06:23 | NUR ---
Problems reprioritized. Patient report given, questions answered & plan of care reviewed with Tami goldstein.
--- NOTE | 2018-02-21 06:23 | NUR ---
Problems reprioritized. Patient report given, questions answered & plan of care reviewed with Carmen EMMANUEL.
--- NOTE | 2018-02-21 06:31 | NUR ---
Patient in room PCU 3026. I have received report from Vicky EMMANUEL and had the opportunity to ask questions and assume patient care. Patient resting comfortably and in no acute distress. Will continue to monitor.
--- NOTE | 2018-02-21 09:20 | NUR ---
Paged Dr. Curtis: PAGER ID: [phone] MESSAGE: Anuradha U [phone]. RE: Reji Sosa [phone]. Patient K:3.1. No replacement protocol orders active in eMar. Can you place new orders for K/Mg? Thank you.
[2018-02-21] MEDS ORDERED: potassium Cl 40MEQ/NS 500ml 500 ML IV PRN ×2 (10:30)
[2018-02-21] MEDS ORDERED: magnesium 4gm in 100ml NS 100 ML IV PRN (10:30)
[2018-02-21 11:00] VITALS: BP 119/55
[2018-02-21] MEDS: Potassium Cl inj 20 MEQ in dextrose 5%-water 990 ML IV SCH ×2 (14:04→23:39)
[2018-02-21 15:00] VITALS: BP_SYST 117; BP_SYST 119; BP_DIAS 55; BP_DIAS 62
[2018-02-21 18:00] VITALS: BP 125/68
--- NOTE | 2018-02-21 18:30 | NUR ---
Orientee documentation: I have reviewed and agree with all interventions, assessments performed and documented by Fara EMMANUEL. Orientee Medication Administration: For this medication-pass time frame, all medication were reviewed, dispensed, administered and documented per hospital policy by LIEN Chaudhari.
--- NOTE | 2018-02-21 18:45 | NUR ---
Patient in room PCU 3026. I have received report from Susan EMMANUEL and had the opportunity to ask questions and assume patient care.
[2018-02-21] MEDS ORDERED: CLOZAPINE PO SCH (20:00)
[2018-02-21 22:00] VITALS: BP 124/68
[2018-02-22 02:00] VITALS: BP 117/66
[2018-02-22 06:00] VITALS: BP 112/64
[2018-02-22 06:06] LABS: MAGNESIUM 1.8 MG/DL (1.5-2.4); POTASSIUM 3.3 MMOL/L (3.5-5.1)
--- NOTE | 2018-02-22 06:44 | NUR ---
Problems reprioritized. Patient report given, questions answered & plan of care reviewed with Gauri EMMANUEL.
[2018-02-22] MEDS: LORazepam 2 mg/ml vial IV PRN ×2 (06:52→19:53)
[2018-02-22] MEDS: Potassium Cl inj 20 MEQ in dextrose 5%-water 990 ML IV SCH ×2 (09:30→20:05)
--- NOTE | 2018-02-22 10:00 | NUR ---
Spoke with Dr. Saavedra in regards to patient's potassium level of 3.3, per Dr. Saavedra, just continue with the D% 20 meq of K+. Will continue to monitor.
[2018-02-22] MEDS: CLOZAPINE 25 MG oral disintegrating tablet PO SCH ×2 (10:44→20:19)
[2018-02-22 11:00] VITALS: BP 132/86
--- NOTE | 2018-02-22 11:15 | NUR ---
SS accompanied CM to meet pt @ bedside, pt was not alert/oriented at all, did respond to his name being called, exhibited involuntary & purposeless movements-legs & head, unable to follow/respond to verbal commands. SS consulted w/[facility] to advocate for pt to be 5150 so he can access emergent MH treatment via a PHF admission. Per consultation, [facility] clinician reports that pt was seen by [facility] yesterday & in consultation w/[facility] PA & hospitalist, the hospital would order additional tests & [facility] recommended administration of Ativan via IV in an attempt to address pt's catatonia sxs. [facility] clinician is advocating for pt to receive additional testing to r/o possible medical cause(s) for the catatonia, and therefore, will not provide 5150 eval at this time. SS contacted [facility] & [facility] to consult re options to support family & pt. Per consultation, SS contacted pt's brother and provided information re obtaining an emergency conservatorship from the Court so family can provide consent for MH treatment or PHF admission. Pt's brother will got to court and file for an emergency conservatorship and fax it to the nursing station. Plan: SS will continue to monitor & engage w/pt's family & community support system and involve them in dcp activities. Once an emergency conservatorship is granted, SS will contact [facility] to see if pt can access a Medicare bed in [facility].
--- NOTE | 2018-02-22 12:09 | NUR ---
PAGER ID: [phone] MESSAGE: [phone] (B) Reji Sosa Did you want to switch IV fluid to D5 half NS? Can I renew lab orders (CBC and CMP). Thank you, #[phone]
--- NOTE | 2018-02-22 13:32 | NUR ---
SS met w/pt's family members to f/u on their efforts to obtain an emergency conservatorship from the Court, per discussion they were not granted one. However, [facility] did provide a 5150 eval for pt and pt is now on a 5150 Hold pending PHF placement. [facility] is unable to accept pt due to pt's needs for IV hydration, [facility] will provide referral for PHF placement. SS will continue to monitor and facilitate/coordinate pt's transfer to a PHF when one accepts him.
--- NOTE | 2018-02-22 14:41 | NUR ---
Initial: Pt admitted d/t AMS with underlying chronic psychiatric disorder. Per MD progress notes pt likely with severe catatonia. Pt has been NPO since admit, now on day six. Pt with multiple BSS by ADULT DAYCARE COORDINATOR with recs for NPO with alt nutrition. MD notes suggest possibility of TPN, however recommend Corpak for nutrition support to preserve gut integrity, MD and RN notified of this recommendation. Recommendations below for if pt to receive TF for full nutrition. Current documented wt likely inaccurate as pt went from 65 kg to 143 kg in one day. Updated BMI with wt of 65 kg is 21.8. D/t pt with poor PO intake and documented decrease in muscle strength pt meets criteria for malnutrition, MD notified. Will continue to follow. Recommendations: 1) If pt to get tube feed, recommend Jevity 1.2 with goal rate of 60 mL/hr 2) If above, prealbumin q M/TH and daily wt Addendum: 02/22/18 at [address] Amended: Links added.
[2018-02-22 15:00] VITALS: BP 103/63
[2018-02-22 18:00] VITALS: BP 120/78
--- NOTE | 2018-02-22 18:21 | NUR ---
Problems reprioritized. Patient report given, questions answered & plan of care reviewed with Araceli EMMANUEL .
--- NOTE | 2018-02-22 19:25 | NUR ---
Patient in room PCU 3026. I have received report from Gauri EMMANUEL and had the opportunity to ask questions and assume patient care.
[2018-02-22 22:00] VITALS: BP 111/79
--- NOTE | 2018-02-22 23:28 | NUR ---
Called Dr. Camacho because patient was confused and had pulled out his IV. Patient was attempting to pull out lopez catheter as well, but was prevented by sitter. Patient was also attempting to climb out of bed, chaim says. Dr. Camacho ordered restraints per our telephone conversation.
[2018-02-23] MEDS: LORazepam 2 mg/ml vial IV PRN ×2 (01:58→17:38)
[2018-02-23 03:00] VITALS: BP 127/74
--- NOTE | 2018-02-23 03:46 | NUR ---
Order received for 2 point restraints. Pt pulled out 22g IV that had D5W with 20 meq K running at 100. 22g in right hand has been placed
[2018-02-23] MEDS: Potassium Cl inj 20 MEQ in dextrose 5%-water 990 ML IV SCH ×2 (05:15→11:14)
--- NOTE | 2018-02-23 06:24 | NUR ---
cheese cooker: I have reviewed and agree with all interventions, assessments performed and documented by Ezekiel EMMANUEL. Student Medication Administration: For this medication-pass time frame, all medication were reviewed, dispensed, administered and documented per hospital policy by Ezekiel EMMANUEL.
--- NOTE | 2018-02-23 06:34 | NUR ---
Problems reprioritized. Patient report given, questions answered & plan of care reviewed with Gauri EMMANUEL.
--- NOTE | 2018-02-23 06:39 | NUR ---
Patient in room PCU 3026. I have received report from Araceli EMMANUEL and had the opportunity to ask questions and assume patient care. Sitter is in room, 2 point restraints to the left and right wrist, pt is resting at this time. Will continue to monitor.
--- NOTE | 2018-02-23 07:19 | NUR ---
PAGER ID: [phone] MESSAGE: CRITICAL LAB [id number] Reji Sosa Critical low potassium level of 3.0.. Thank you, Gauri #[phone]
[2018-02-23] MEDS: CLOZAPINE 25 MG oral disintegrating tablet PO SCH ×2 (08:16→19:54)
[2018-02-23 11:00] VITALS: BP 105/65
--- NOTE | 2018-02-23 13:07 | NUR ---
SS attempted to rouse pt to complete pscychosocial. Pt continues to be unresponsive. T/C with [facility] Core Machine Tender- Anu Farr [phone] to engage them in dcp. SS stressed the need of pt needing a living situation with additional support as it is unclear how long pt will remain in a contonic state, and since there are no acute medical issues requiring continued hospitalization, pt needs to be returned to his home. SS utilized SC strategies to engage [facility] in dicussion re placement options for pt in the event that he does not get admitted to a psych hospital or post psych admission and continues to be in a catatonic state. Per discussion [facility] does have some placement facilities that have nurses on staff, but access to these are limited to individuals w/developmental disability, SS also discussed the possibility of a snf and pt can access appropriate home healthcare services. [facility] states that it is ultimately the family's decision.
[2018-02-23 15:00] VITALS: BP 101/73
--- NOTE | 2018-02-23 17:49 | NUR ---
Pt was restless, trying to pull out IV, and hitting himself. Pt does not follow commands. Administered Ativan per MD order. Will continue to monitor.
--- NOTE | 2018-02-23 18:15 | NUR ---
Patient in room PCU 3026. I have received report from Gauri EMMANUEL and had the opportunity to ask questions and assume patient care.
--- NOTE | 2018-02-23 18:27 | NUR ---
Problems reprioritized. Patient report given, questions answered & plan of care reviewed with Cam EMMANUEL.
[2018-02-23 19:00] VITALS: BP 106/70
[2018-02-23 23:00] VITALS: BP 98/66
[2018-02-24] MEDS: Potassium Cl inj 20 MEQ in dextrose 5%-water 990 ML IV SCH ×3 (01:15→21:15)
--- NOTE | 2018-02-24 02:15 | NUR ---
Spoke with Dr. Florez. Spoke with Dr. Florez via telephone regarding patient pulling out IV and having difficulty obtaining access again. Informed Dr. Florez of critical potassium level of 3.0. Dr. Florez ordered discontinuing NPO and starting a regular diet. Dr. Florez also ordered 40 mEq PO potassium supplement to correct 3.0 potassium value.
[2018-02-24] MEDS ORDERED: potassium Cl 20 mEq SR tablet PO PRN ×2 (02:20)
[2018-02-24] MEDS ORDERED: magnesium Cl slow-release 64mg tablet PO PRN (02:20)
[2018-02-24] MEDS ORDERED: magnesium 4gm in 100ml NS 100 ML IV PRN (02:20)
[2018-02-24] MEDS ORDERED: potassium Cl 40MEQ/NS 500ml 500 ML IV PRN ×2 (02:20)
--- NOTE | 2018-02-24 06:25 | NUR ---
Problems reprioritized. Patient report given, questions answered & plan of care reviewed with Regulo RN.
--- NOTE | 2018-02-24 06:30 | NUR ---
Patient in room PCU 3012. I have received report from Cam EMMANUEL and had the opportunity to ask questions and assume patient care.
[2018-02-24 06:43] VITALS: BP 106/76
[2018-02-24] MEDS ORDERED: haloperidol lactate 5mg/ml inj IM ONE (06:45)
[2018-02-24] MEDS ORDERED: diphenhydrAMINE 50 mg/ml inj IM ONE (06:45)
--- NOTE | 2018-02-24 06:48 | NUR ---
Spoke to Dr. Florez Called Dr. Florez to request restraint renewal. Dr. Florez renewed restraints as well as ordered 5mg Haldol IM with 50 mg Benadryl IM.
[2018-02-24] MEDS: CLOZAPINE 25 MG oral disintegrating tablet PO SCH ×4 (08:00→23:04)
[2018-02-24 11:00] VITALS: BP 100/71
[2018-02-24 15:00] VITALS: BP 101/68
--- NOTE | 2018-02-24 18:07 | NUR ---
Spoke with Physician and notified that patient has not voided, but has not experienced and discomfort during palpation. Physia Addendum: 02/24/18 at 1809 by Meng Chambers RN Physician gave no new orders and continue to monitor at this time.
--- NOTE | 2018-02-24 18:09 | NUR ---
Notified physicain that restraint orders need to be laney that were received by the previous shift.
--- NOTE | 2018-02-24 18:30 | NUR ---
Problems reprioritized. Patient report given, questions answered & plan of care reviewed with Marely EMMANUEL.
--- NOTE | 2018-02-24 18:30 | NUR ---
Patient in room PCU 3012. I have received report from Regulo EMMANUEL and had the opportunity to ask questions and assume patient care.
[2018-02-24 19:00] VITALS: BP 106/53
[2018-02-24 22:00] VITALS: BP 103/73
[2018-02-25 02:30] VITALS: BP 103/69
[2018-02-25 06:00] VITALS: BP 100/67
--- NOTE | 2018-02-25 06:20 | NUR ---
Problems reprioritized. Patient report given, questions answered & plan of care reviewed with Heather RN.
--- NOTE | 2018-02-25 06:20 | NUR ---
Patient in room PCU 3012. I have received report from LIEN Yap and had the opportunity to ask questions and assume patient care.
[2018-02-25 06:21] LABS: MAGNESIUM 2.2 MG/DL (1.5-2.4); POTASSIUM 3.8 MMOL/L (3.5-5.1)
[2018-02-25] MEDS: Potassium Cl inj 20 MEQ in dextrose 5%-water 990 ML IV SCH ×2 (07:02→17:49)
[2018-02-25] MEDS: CLOZAPINE 25 MG oral disintegrating tablet PO SCH (07:04)
[2018-02-25 11:00] VITALS: BP 97/72
--- NOTE | 2018-02-25 12:34 | NUR ---
reassessment: [employer] regarding nutrition support given day 9 NPO/refusing meals r/t catatonia and PROCESS EXPERT recs alternative nutrition since first BSS. IF catatonia persists pt would benefit from PEG feeds for long-term nutrition needs. Receiving KCl/dex. LBM 02/22. Current wt is an error w/ wt in pounds currently listed as in kg. JC faxed clinical pharmacist in hopes to correct given meds are dosed based on wt and unable to reach RN. Will monitor for nutrition support approval per MD; recs below using accurate wt. Recommendations: 1) If corpak/PEG tube feeds, recommend Jevity 1.2 at 60 mL/hr goal 2) If above, prealbumin q M/ and daily wt 3) wt correction Addendum: 02/25/18 at [address] Amended: Links added.
[2018-02-25 15:00] VITALS: BP 99/68
[2018-02-25 18:00] VITALS: BP 98/63
[2018-02-25] MEDS: clozapine 25mg tablet PO SCH (21:00)
[2018-02-25] MEDS ORDERED: CLOZAPINE PO SCH (21:00)
--- NOTE | 2018-02-25 21:31 | NUR ---
Patient in room U 3012. I have received report from LIEN Romero and had the opportunity to ask questions and assume patient care. Addendum: 02/25/18 at 2132 by Monika Robles RN Amended: Links added.
[2018-02-25 22:00] VITALS: BP 104/62
[2018-02-25] MEDS: LORazepam 2 mg/ml vial IV PRN (22:18)
[2018-02-26 02:00] VITALS: BP 100/59
[2018-02-26] MEDS: Potassium Cl inj 20 MEQ in dextrose 5%-water 990 ML IV SCH ×2 (02:42→13:06)
--- NOTE | 2018-02-26 06:05 | NUR ---
Patient in room PCU 3012. I have received report from LIEN Frank and had the opportunity to ask questions and assume patient care.
--- NOTE | 2018-02-26 06:19 | NUR ---
Problems reprioritized. Patient report given, questions answered & plan of care reviewed with LIEN Adler. Addendum: 02/26/18 at 0619 by Monika Robles RN Amended: Links added.
[2018-02-26 06:28] LABS: MAGNESIUM 2.2 MG/DL (1.5-2.4); POTASSIUM 3.7 MMOL/L (3.5-5.1)
[2018-02-26 06:30] VITALS: BP 92/58
[2018-02-26] MEDS ORDERED: CLOZAPINE PO SCH (08:00)
[2018-02-26] MEDS: clozapine 25mg tablet PO SCH ×2 (08:00→21:00)
[2018-02-26 10:22] LABS: ALANINE AMINOTRANSFERASE 43 U/L (12-78); ALBUMIN 2.9 G/DL (3.4-5.0); ALBUMIN/GLOBULIN RATIO 0.9 (1.1-1.5); ALKALINE PHOSPHATASE 75 IU/L (46-116); ANION GAP 10 (8-16); ASPARTATE AMINO TRANSFERASE 29 U/L (10-37); BILIRUBIN,TOTAL 0.7 MG/DL (0.1-1.0); BLOOD UREA NITROGEN 7 MG/DL (7-18); BUN/CREATININE RATIO 6.4 (5.4-32.0); CALCIUM 8.6 MG/DL (8.5-10.1); CHLORIDE 104 MMOL/L (99-107); CREATININE 1.09 MG/DL (0.60-1.10); GLUCOSE 118 MG/DL (70-104); SODIUM 138 MMOL/L (135-145); TOTAL CARBON DIOXIDE 24.4 MMOL/L (24-32); eGFR 72 ML/MIN
[2018-02-26 10:24] LABS: POTASSIUM 4.3 MMOL/L (3.5-5.1)
[2018-02-26 10:30] LABS: BASOPHILS % (AUTO) 0.3 % (0-1); EOSINOPHILS # (AUTO) 0.2 X10'3 (0-0.9); EOSINOPHILS % (AUTO) 1.7 % (0-6); HEMOGLOBIN 15.3 g/dl (14.0-17.9); LYMPHOCYTES # (AUTO) 1.8 X10'3 (1.1-4.8); LYMPHOCYTES % (AUTO) 17.8 % (21-51); MEAN CORPUSCULAR HEMOGLOBIN 31.5 PG (27.0-31.0); MEAN CORPUSCULAR HGB CONC 33.9 % (33.0-36.5); MEAN CORPUSCULAR VOLUME 92.9 FL (78-98); MEAN PLATELET VOLUME 8.9 FL (7.4-10.4); MONOCYTES # (AUTO) 0.8 X10'3 (0-0.9); MONOCYTES % (AUTO) 8.1 % (2-12); NEUTROPHILS # (AUTO) 7.4 X10'3 (1.8-7.7); NEUTROPHILS % (AUTO) 72.1 % (42-75); PLATELET COUNT 271 X10'3 (140-440); RED BLOOD COUNT 4.84 X10'6 (4.70-6.10); RED CELL DISTRIBUTION WIDTH 13.2 % (11.5-14.5); WHITE BLOOD COUNT 10.3 X10'3 (4.5-11.0)
--- NOTE | 2018-02-26 11:23 | NUR ---
SS met w/pt at bedside, alert and able to respond to name being called, understood that he's in the hospital and able to choose not to engage with SS. SS contacted family, requesting that they come in and participate in discussion re d/c-ing pt to [facility] for psychiatric treatment, as pt will need to voluntarily agree to go there in order to access Medicare bed, if pt unwilling, SS will consider referral to [facility] for a re-eval of 5150. Plan: SS to meet pt & family @ 2:00 PM.
[2018-02-26 11:30] VITALS: BP 81/60
[2018-02-26 13:45] VITALS: BP_SYST 86; BP_SYST 88; BP_DIAS 51
[2018-02-26 15:30] VITALS: BP 89/64
[2018-02-26 18:00] VITALS: BP 104/61
[2018-02-26] MEDS ORDERED: normal saline 500ml IV soln 1,000 ML IV ONE (18:35)
--- NOTE | 2018-02-26 18:49 | NUR ---
Problems reprioritized. Patient report given, questions answered & plan of care reviewed with LIEN Mckeon.
--- NOTE | 2018-02-26 18:50 | NUR ---
Patient in room PCU 3012. I have received report from LIEN Adler and had the opportunity to ask questions and assume patient care.
[2018-02-26] MEDS: LORazepam 2 mg/ml vial IV PRN (22:34)
--- NOTE | 2018-02-26 22:54 | NUR ---
Patient very agitated for 2200 vitals, refused.
[2018-02-27] MEDS: Potassium Cl inj 20 MEQ in dextrose 5%-water 990 ML IV SCH ×3 (00:01→19:41)
--- NOTE | 2018-02-27 02:00 | NUR ---
Patient refused 0200 vitals.
[2018-02-27] MEDS: LORazepam 2 mg/ml vial IV PRN ×2 (04:06→22:19)
[2018-02-27 06:00] VITALS: BP 97/63
[2018-02-27 06:13] LABS: MAGNESIUM 2.2 MG/DL (1.5-2.4); POTASSIUM 4.2 MMOL/L (3.5-5.1)
--- NOTE | 2018-02-27 06:30 | NUR ---
Patient in room PCU 3012. I have received report from angelita william and had the opportunity to ask questions and assume patient care.
--- NOTE | 2018-02-27 06:50 | NUR ---
Problems reprioritized. Patient report given, questions answered & plan of care reviewed with LIEN Verdin.
[2018-02-27] MEDS: clozapine 25mg tablet PO SCH ×2 (08:00→21:00)
--- NOTE | 2018-02-27 11:30 | NUR ---
reassessment: [facility] [employer] for [employer]ak needs given pt no nutrition day 11 refusing meals w/ catatonia. No longer 5150 hold so manually has to enter behavioral health. JC has paged MD every day since [employer] recs alternative nutrition still awaiting reply. [employer] did agree to regular diet yesterday but pt still refusing all foods. Pt needs supplemental corpak nutrition support r/t catatonia at this time. Will monitor for MD response. Recommendations: 1) If corpak/PEG tube feeds, recommend Jevity 1.2 at 60 mL/hr goal 2) If above, prealbumin q M/TH and daily wt 3) nutrition support given day 11 no nutrition Addendum: 02/27/18 at [address] Amended: Links added.
--- NOTE | 2018-02-27 12:27 | NUR ---
DR. DE LEÓN, 5772A/NEO, WOULD YOU PLEASE RENEW RESTRAINT ORDER? TY, [place] [id number].
--- NOTE | 2018-02-27 15:00 | NUR ---
REFUSED VITAL SIGNS.
--- NOTE | 2018-02-27 16:54 | NUR ---
PAGER ID: [phone] MESSAGE: DR. DE LEÓN, 5980G/NEO, ASKING TO TALK TO HIS DOCTOR. SOMETHING ABOUT TRANSFERRING TO ANOTHER HOSPITAL? He seems confused. [place] [id number]. TY
--- NOTE | 2018-02-27 18:30 | NUR ---
PATIENT REFUSED 1800 VITAL SIGNS.
--- NOTE | 2018-02-27 18:58 | NUR ---
Problems reprioritized. Patient report given, questions answered & plan of care reviewed with LIEN BARRETT.
--- NOTE | 2018-02-27 19:01 | NUR ---
Patient in room PCU 3012. I have received report from Lambert EMMANUEL and had the opportunity to ask questions and assume patient care. Pt resting comfortably, sitter at bedside.
[2018-02-27 20:58] VITALS: BP 98/62
[2018-02-27 22:00] VITALS: BP 104/69
--- NOTE | 2018-02-27 23:42 | NUR ---
Restraints released, patient acting appropriate, eating and drinking at this time. Sitter at bedside, will continue to monitor.
[2018-02-28 02:00] VITALS: BP_SYST 90; BP_DIAS 41; BP_DIAS 51
[2018-02-28] MEDS: Potassium Cl inj 20 MEQ in dextrose 5%-water 990 ML IV SCH ×2 (04:49→14:32)
--- NOTE | 2018-02-28 05:36 | NUR ---
Patient uncooperative and refused lab draw, restraints reapplied and labs retimed for 0800. Will continue to monitor.
--- NOTE | 2018-02-28 06:30 | NUR ---
Patient in room PCU 3012. I have received report from angelita donis and had the opportunity to ask questions and assume patient care.
--- NOTE | 2018-02-28 06:37 | NUR ---
Problems reprioritized. Patient report given, questions answered & plan of care reviewed with Lambert RN.
--- NOTE | 2018-02-28 06:53 | NUR ---
refused 0600 vs
[2018-02-28] MEDS: clozapine 25mg tablet PO SCH ×3 (08:00→21:00)
[2018-02-28 09:53] LABS: BASOPHILS # (AUTO) 0.1 X10'3 (0-0.2); BASOPHILS % (AUTO) 0.4 % (0-1); EOSINOPHILS # (AUTO) 0.3 X10'3 (0-0.9); EOSINOPHILS % (AUTO) 2.1 % (0-6); HEMATOCRIT 39.9 % (42.0-52.0); HEMOGLOBIN 13.7 g/dl (14.0-17.9); LYMPHOCYTES # (AUTO) 2.3 X10'3 (1.1-4.8); LYMPHOCYTES % (AUTO) 17.2 % (21-51); MEAN CORPUSCULAR HEMOGLOBIN 31.9 PG (27.0-31.0); MEAN CORPUSCULAR HGB CONC 34.3 % (33.0-36.5); MEAN CORPUSCULAR VOLUME 93.1 FL (78-98); MEAN PLATELET VOLUME 8.3 FL (7.4-10.4); MONOCYTES # (AUTO) 0.8 X10'3 (0-0.9); MONOCYTES % (AUTO) 6.2 % (2-12); NEUTROPHILS # (AUTO) 10.1 X10'3 (1.8-7.7); NEUTROPHILS % (AUTO) 74.1 % (42-75); PLATELET COUNT 327 X10'3 (140-440); RED BLOOD COUNT 4.29 X10'6 (4.70-6.10); WHITE BLOOD COUNT 13.6 X10'3 (4.5-11.0)
[2018-02-28 10:08] LABS: ALANINE AMINOTRANSFERASE 41 U/L (12-78); ALBUMIN 2.7 G/DL (3.4-5.0); ALBUMIN/GLOBULIN RATIO 0.9 (1.1-1.5); ALKALINE PHOSPHATASE 88 IU/L (46-116); ANION GAP 9 (8-16); ASPARTATE AMINO TRANSFERASE 24 U/L (10-37); BILIRUBIN,TOTAL 0.6 MG/DL (0.1-1.0); BLOOD UREA NITROGEN 9 MG/DL (7-18); BUN/CREATININE RATIO 8.4 (5.4-32.0); CALCIUM 8.3 MG/DL (8.5-10.1); CHLORIDE 105 MMOL/L (99-107); CREATININE 1.07 MG/DL (0.60-1.10); GLUCOSE 100 MG/DL (70-104); PHOSPHORUS 3.4 MG/DL (2.3-4.5); POTASSIUM 4.1 MMOL/L (3.5-5.1); SODIUM 139 MMOL/L (135-145); TOTAL CARBON DIOXIDE 24.7 MMOL/L (24-32); TOTAL PROTEIN 5.6 G/DL (6.4-8.2); eGFR 74 ML/MIN
[2018-02-28] MEDS: LORazepam 2 mg/ml vial IV PRN (10:59)
[2018-02-28 11:00] VITALS: BP 108/63
--- NOTE | 2018-02-28 11:00 | NUR ---
O2 Sat at rest on room air:__88_% If below 89%: Recovery O2 Sat at rest on __2_LPM:___94%:___% via NASAL CANNULA (mask/nasal cannula, etc..) No further documentation is necessary. If O2 Sat did not drop below 89% on room air,ambulate patient on room air. O2 Sat while ambulating on room air:___% Recovery O2 Sat while ambulating on ___LPM:___% No further documentation is necessary. If patient does not drop below 89% while ambulating, he/she does not qualify for home O2.
--- NOTE | 2018-02-28 11:50 | NUR ---
DR. PRESSLEY IN, ASKED ME TO HAVE CLOZARIL 50 MG DOSE READY TO TAKE, ATTEMPTED, BUT PT CONTINUES TO REFUSE.MEDICATION HAD TO BE THROWN AWAY.
--- NOTE | 2018-02-28 14:08 | NUR ---
reassessment: JC [employer] for supplemental corpak nutrition support needs in addition to current PO diet given pt no nutrition day 13 refusing meals believes food is poison per family. Awaiting reply. Addendum: 02/28/18 at [address] Amended: Links added.
[2018-02-28 15:00] VITALS: BP 99/67
--- NOTE | 2018-02-28 15:39 | NUR ---
PAGER ID: [phone] MESSAGE: DR. DE LEÓN, 3012A/NEO, WBC 13.6. [place] [id number]. TY.
--- NOTE | 2018-02-28 18:10 | NUR ---
Patient in room PCU 3012. I have received report from Lambert EMMANUEL and had the opportunity to ask questions and assume patient care.
--- NOTE | 2018-02-28 18:28 | NUR ---
Problems reprioritized. Patient report given, questions answered & plan of care reviewed with anna rn.
[2018-02-28 19:00] VITALS: BP 85/55
[2018-02-28 23:00] VITALS: BP 98/57
[2018-03-01] MEDS: Potassium Cl inj 20 MEQ in dextrose 5%-water 990 ML IV SCH ×3 (01:03→21:46)
[2018-03-01] MEDS ORDERED: LORazepam 2 mg/ml vial IV ONE (01:20)
[2018-03-01 03:00] VITALS: BP 100/59
--- NOTE | 2018-03-01 04:37 | NUR ---
pt drank a whole gatorade 355ml
--- NOTE | 2018-03-01 04:38 | NUR ---
pt started to response and talk after receiving ativan @0405
--- NOTE | 2018-03-01 06:18 | NUR ---
pt refused AM lab @7920
--- NOTE | 2018-03-01 06:34 | NUR ---
Patient in room PCU 3012. I have received report from Rosana EMMANUEL and had the opportunity to ask questions and assume patient care. Will continue to monitor.
--- NOTE | 2018-03-01 06:52 | NUR ---
[place] documentation: I have reviewed and agree with all interventions, assessments performed and documented by Corazon EMMANUEL.
[2018-03-01] MEDS: haloperidol lactate IV 5 MG/ML inj. IV SCH ×2 (08:00→19:14)
[2018-03-01] MEDS: LORazepam 2 mg/ml vial IV SCH ×2 (08:48→19:12)
[2018-03-01 09:25] LABS: BASOPHILS % (AUTO) 0.4 % (0-1); EOSINOPHILS # (AUTO) 0.1 X10'3 (0-0.9); EOSINOPHILS % (AUTO) 1.5 % (0-6); HEMATOCRIT 40.3 % (42.0-52.0); HEMOGLOBIN 13.9 g/dl (14.0-17.9); LYMPHOCYTES # (AUTO) 1.8 X10'3 (1.1-4.8); LYMPHOCYTES % (AUTO) 18.4 % (21-51); MEAN CORPUSCULAR HEMOGLOBIN 31.7 PG (27.0-31.0); MEAN CORPUSCULAR HGB CONC 34.5 % (33.0-36.5); MEAN CORPUSCULAR VOLUME 92.1 FL (78-98); MEAN PLATELET VOLUME 8.2 FL (7.4-10.4); MONOCYTES # (AUTO) 0.6 X10'3 (0-0.9); MONOCYTES % (AUTO) 6.2 % (2-12); NEUTROPHILS # (AUTO) 7.2 X10'3 (1.8-7.7); NEUTROPHILS % (AUTO) 73.5 % (42-75); PLATELET COUNT 290 X10'3 (140-440); RED BLOOD COUNT 4.37 X10'6 (4.70-6.10); RED CELL DISTRIBUTION WIDTH 13.8 % (11.5-14.5); WHITE BLOOD COUNT 9.8 X10'3 (4.5-11.0)
[2018-03-01 09:45] LABS: ALANINE AMINOTRANSFERASE 39 U/L (12-78); ALBUMIN 2.8 G/DL (3.4-5.0); ALKALINE PHOSPHATASE 82 IU/L (46-116); ANION GAP 11 (8-16); ASPARTATE AMINO TRANSFERASE 21 U/L (10-37); BILIRUBIN,TOTAL 0.7 MG/DL (0.1-1.0); BLOOD UREA NITROGEN 5 MG/DL (7-18); BUN/CREATININE RATIO 5.9 (5.4-32.0); CALCIUM 8.9 MG/DL (8.5-10.1); CHLORIDE 106 MMOL/L (99-107); CREATININE 0.85 MG/DL (0.60-1.10); GLUCOSE 92 MG/DL (70-104); MAGNESIUM 2.1 MG/DL (1.5-2.4); PHOSPHORUS 3.3 MG/DL (2.3-4.5); POTASSIUM 3.3 MMOL/L (3.5-5.1); SODIUM 141 MMOL/L (135-145); TOTAL CARBON DIOXIDE 24.1 MMOL/L (24-32); TOTAL PROTEIN 5.6 G/DL (6.4-8.2); eGFR > 90 ML/MIN
--- NOTE | 2018-03-01 12:25 | NUR ---
reassessment: RD visited pt who remains non-verbal; still believes all food is poisoned per family. No PO day 14. RD met w/ MD and discussed nutrition support needs given day 14, ASPEN guidelines. JC discussed that can admit pt on corpak given prior catatonia pts in have been on nutrition support. MD agrees that pt needs nutrition support and agrees to start nutrition following talk w/ psych MD to ensure transfer will not be impacted. Regardless of transfer or not pt still has nutrition needs and needs nutrition support. JC d/w RN if MDs agree to nutrition support to [facility] consult RD for recs. Will continue to monitor; corpak recs below. Addendum: 03/01/18 at [address] Amended: Links added.
--- NOTE | 2018-03-01 13:09 | NUR ---
PAGER ID: [phone] MESSAGE: [id number] Reji Dumont Pt's urine is red, and blood coming out of penis (about 30 mL). Thank you, Gauri #[phone]
--- NOTE | 2018-03-01 13:56 | NUR ---
PAGER ID: [phone] MESSAGE: [phone] Reji Dumont, can you please renew the restraint order, thank you, Gauri #[phone]
--- NOTE | 2018-03-01 13:56 | NUR ---
Pt ate lunch and drank 300 mL of fluids, pt is able to follow most commands at this time, will continue to monitor
[2018-03-01 15:00] VITALS: BP 91/56
--- NOTE | 2018-03-01 17:19 | NUR ---
PAGER ID: [phone] MESSAGE: [id number] Reji Sosa Please can I renew restraints, pt is hitting himself Thank you, Gauri #[phone]
--- NOTE | 2018-03-01 18:06 | NUR ---
PAGER ID: [phone] MESSAGE: [id number] Reji Sosa Pt agitated and trying to get out of restraints there is not a PRN Ativan ordered, Thank you, Gauri #[phone] Addendum: 03/01/18 at 1810 by Gauri Richardson RN Dr. Jay called back, new order for Haldol 5 mg IM once, and repeat in one hour if pt is still agitated.
[2018-03-01] MEDS ORDERED: haloperidol lactate 5mg/ml inj IM ONE (18:20)
--- NOTE | 2018-03-01 18:23 | NUR ---
Problems reprioritized. Patient report given, questions answered & plan of care reviewed with Trena EMMANUEL.
--- NOTE | 2018-03-01 18:41 | NUR ---
Received report from primary care nurse Gauri EMMANUEL. Assumed patient care. Patient is awake and alert on room air. Sitter is at the bedside. Call light and items of frequent use within reach. Will continue to monitor for changes.
[2018-03-01 19:00] VITALS: BP 124/66
[2018-03-01] MEDS: clozapine 25mg tablet PO SCH (20:53)
[2018-03-01 23:00] VITALS: BP 103/64
[2018-03-02] MEDS ORDERED: OLANZapine **IM** 10 mg inj. IM ONE (02:00)
[2018-03-02 03:00] VITALS: BP 127/85
[2018-03-02 06:02] LABS: BASOPHILS % (AUTO) 0.3 % (0-1); EOSINOPHILS # (AUTO) 0.1 X10'3 (0-0.9); EOSINOPHILS % (AUTO) 1.5 % (0-6); HEMATOCRIT 42.4 % (42.0-52.0); HEMOGLOBIN 14.5 g/dl (14.0-17.9); MEAN CORPUSCULAR HEMOGLOBIN 31.6 PG (27.0-31.0); MEAN CORPUSCULAR HGB CONC 34.2 % (33.0-36.5); MEAN CORPUSCULAR VOLUME 92.4 FL (78-98); MEAN PLATELET VOLUME 8.5 FL (7.4-10.4); MONOCYTES # (AUTO) 0.6 X10'3 (0-0.9); MONOCYTES % (AUTO) 5.9 % (2-12); NEUTROPHILS # (AUTO) 7.1 X10'3 (1.8-7.7); NEUTROPHILS % (AUTO) 72.3 % (42-75); PLATELET COUNT 324 X10'3 (140-440); RED BLOOD COUNT 4.59 X10'6 (4.70-6.10); RED CELL DISTRIBUTION WIDTH 13.2 % (11.5-14.5); WHITE BLOOD COUNT 9.9 X10'3 (4.5-11.0)
--- NOTE | 2018-03-02 06:13 | NUR ---
Reported off to Cam EMMANUEL. Patient is awake and alert on room air. In no apparent distress. Sitter is at his bedside.
--- NOTE | 2018-03-02 06:15 | NUR ---
Patient in room PCU 3012. I have received report from Trena EMMANUEL and had the opportunity to ask questions and assume patient care.
[2018-03-02 06:22] LABS: ALANINE AMINOTRANSFERASE 38 U/L (12-78); ALBUMIN 3.2 G/DL (3.4-5.0); ALKALINE PHOSPHATASE 93 IU/L (46-116); ANION GAP 12 (8-16); ASPARTATE AMINO TRANSFERASE 22 U/L (10-37); BILIRUBIN,TOTAL 0.7 MG/DL (0.1-1.0); BLOOD UREA NITROGEN 4 MG/DL (7-18); BUN/CREATININE RATIO 3.7 (5.4-32.0); CHLORIDE 105 MMOL/L (99-107); CREATININE 1.08 MG/DL (0.60-1.10); GLUCOSE 109 MG/DL (70-104); PHOSPHORUS 3.2 MG/DL (2.3-4.5); SODIUM 143 MMOL/L (135-145); TOTAL CARBON DIOXIDE 26.2 MMOL/L (24-32); TOTAL PROTEIN 6.3 G/DL (6.4-8.2); eGFR 73 ML/MIN
[2018-03-02 06:47] LABS: POTASSIUM 2.9 MMOL/L (3.5-5.1)
[2018-03-02 07:00] VITALS: BP 97/70
[2018-03-02] MEDS: Potassium Cl inj 20 MEQ in dextrose 5%-water 990 ML IV SCH ×2 (07:15→10:20)
[2018-03-02] MEDS: haloperidol lactate IV 5 MG/ML inj. IV SCH ×2 (08:00→20:15)
[2018-03-02] MEDS ORDERED: potassium Cl 20 mEq SR tablet PO PRN ×2 (09:40)
[2018-03-02] MEDS ORDERED: potassium Cl 40MEQ/NS 500ml 500 ML IV PRN (09:40)
[2018-03-02] MEDS ORDERED: magnesium 4gm in 100ml NS 100 ML IV PRN (09:40)
[2018-03-02] MEDS ORDERED: magnesium Cl slow-release 64mg tablet PO PRN (09:40)
[2018-03-02] MEDS: LORazepam 2 mg/ml vial IV SCH ×2 (10:10→20:15)
[2018-03-02] MEDS: clozapine 25mg tablet PO SCH ×2 (10:24→20:15)
[2018-03-02 11:00] VITALS: BP 104/61
[2018-03-02] MEDS: potassium Cl 40MEQ/NS 500ml 500 ML IV PRN ×2 (11:45→16:39)
[2018-03-02 15:00] VITALS: BP 102/78
[2018-03-02] MEDS ORDERED: LIDOcaine 1% 30ml vial 5 ML in potassium Cl 40MEQ/NS 500ml 500 ML IV ONE (17:10)
--- NOTE | 2018-03-02 18:30 | NUR ---
Problems reprioritized. Patient report given, questions answered & plan of care reviewed with Elizabeth EMMANUEL.
--- NOTE | 2018-03-02 18:45 | NUR ---
Patient in room PCU 3012. I have received report from LIEN Levy and had the opportunity to ask questions and assume patient care.
[2018-03-02 19:00] VITALS: BP 113/57
[2018-03-02 23:00] VITALS: BP 107/65
[2018-03-03] MEDS: Potassium Cl inj 20 MEQ in dextrose 5%-water 990 ML IV SCH ×3 (00:23→21:06)
[2018-03-03 03:00] VITALS: BP 105/69
--- NOTE | 2018-03-03 06:15 | NUR ---
Problems reprioritized. Patient report given, questions answered & plan of care reviewed with LIEN Bryan.
[2018-03-03 06:40] LABS: BASOPHILS % (AUTO) 0.3 % (0-1); EOSINOPHILS # (AUTO) 0.2 X10'3 (0-0.9); EOSINOPHILS % (AUTO) 1.9 % (0-6); HEMATOCRIT 39.8 % (42.0-52.0); HEMOGLOBIN 13.8 g/dl (14.0-17.9); LYMPHOCYTES # (AUTO) 2.3 X10'3 (1.1-4.8); MEAN CORPUSCULAR HEMOGLOBIN 32.1 PG (27.0-31.0); MEAN CORPUSCULAR HGB CONC 34.7 % (33.0-36.5); MEAN CORPUSCULAR VOLUME 92.3 FL (78-98); MEAN PLATELET VOLUME 8.3 FL (7.4-10.4); MONOCYTES # (AUTO) 0.5 X10'3 (0-0.9); NEUTROPHILS # (AUTO) 5.5 X10'3 (1.8-7.7); NEUTROPHILS % (AUTO) 64.8 % (42-75); PLATELET COUNT 288 X10'3 (140-440); RED BLOOD COUNT 4.31 X10'6 (4.70-6.10); RED CELL DISTRIBUTION WIDTH 14.1 % (11.5-14.5); WHITE BLOOD COUNT 8.5 X10'3 (4.5-11.0)
[2018-03-03 06:58] LABS: ALANINE AMINOTRANSFERASE 35 U/L (12-78); ALBUMIN/GLOBULIN RATIO 0.9 (1.1-1.5); ALKALINE PHOSPHATASE 90 IU/L (46-116); ANION GAP 10 (8-16); ASPARTATE AMINO TRANSFERASE 19 U/L (10-37); BILIRUBIN,TOTAL 0.5 MG/DL (0.1-1.0); BLOOD UREA NITROGEN 8 MG/DL (7-18); BUN/CREATININE RATIO 7.8 (5.4-32.0); CALCIUM 9.1 MG/DL (8.5-10.1); CHLORIDE 108 MMOL/L (99-107); CREATININE 1.03 MG/DL (0.60-1.10); GLUCOSE 100 MG/DL (70-104); PHOSPHORUS 3.4 MG/DL (2.3-4.5); POTASSIUM 3.9 MMOL/L (3.5-5.1); SODIUM 143 MMOL/L (135-145); TOTAL CARBON DIOXIDE 24.9 MMOL/L (24-32); TOTAL PROTEIN 6.2 G/DL (6.4-8.2); eGFR 77 ML/MIN
[2018-03-03 07:04] VITALS: BP 100/64
--- NOTE | 2018-03-03 07:20 | NUR ---
Patient in room PCU 3012. I have received report from Elizabeth EMMANUEL and had the opportunity to ask questions and assume patient care. Sitter at patients bedside.
[2018-03-03] MEDS: clozapine 25mg tablet PO SCH ×4 (08:00→21:00)
[2018-03-03] MEDS: haloperidol lactate IV 5 MG/ML inj. IV SCH ×2 (08:00→21:02)
[2018-03-03] MEDS: LORazepam 2 mg/ml vial IV SCH ×2 (10:25→20:59)
[2018-03-03] MEDS ORDERED: haloperidol lactate IV 5 MG/ML inj. IV ONE (11:50)
--- NOTE | 2018-03-03 12:30 | NUR ---
Patient refused to let us do afternoon vitals
[2018-03-03 15:51] VITALS: BP 92/60
--- NOTE | 2018-03-03 18:42 | NUR ---
Problems reprioritized. Patient report given, questions answered & plan of care reviewed with Sultana EMMANUEL.
[2018-03-03 20:00] VITALS: BP 97/65
[2018-03-03 23:00] VITALS: BP 113/73
[2018-03-04] MEDS ORDERED: LORazepam 2 mg/ml vial IV ONE (02:15)
[2018-03-04 03:00] VITALS: BP 99/54
--- NOTE | 2018-03-04 06:00 | NUR ---
Patient in room PCU 3012. I have received report from Sultana EMMANUEL and had the opportunity to ask questions and assume patient care.
[2018-03-04] MEDS: Potassium Cl inj 20 MEQ in dextrose 5%-water 990 ML IV SCH (06:28)
--- NOTE | 2018-03-04 06:30 | NUR ---
Problems reprioritized. Patient report given, questions answered & plan of care reviewed with STEPHON EMMANUEL.
[2018-03-04 07:00] VITALS: BP 96/65
[2018-03-04] MEDS: clozapine 25mg tablet PO SCH ×2 (08:00→09:25)
[2018-03-04] MEDS ORDERED: CLOZ25TA12 PO ×2 (10:59)
--- NOTE | 2018-03-04 11:00 | NUR ---
Pt. refused 1100 vitals
--- NOTE | 2018-03-04 11:38 | NUR ---
reassessment: Pt now taking psych meds w/ PO 100% regular diet meeting needs. Receiving Kcl/dex and no signs of refeeding. Likely no PO intake since new years lauren per family r/t food receipts found at home. JC d/w dietary to send any food requests given malnutrition. Will continue to monitor. Recommendations: 1) continue regular diet; honor all food preferences 2) monitor for ONS needs 3) routine bowel care 4) weekly wts Addendum: 03/04/18 at [address] Amended: Links added.
--- NOTE | 2018-03-04 15:40 | NUR ---
Pt. was evaluated by the mental health staff and the hospitalist and they decided he was good for transfer to Behavioral Health. PIV was removed and cannula was intact. Tele removed and returned to [facility].
== END 2018-03-04 15:20 | DRG 91 ==
LOC: ER 10:38 → ED HOLD 16:28 → EDBEDREQSVC 02-17 18:02 → EDBEDREQDT 02-17 18:02 → PCU 3S 02-18 13:46
PROVIDERS: ADMIT Internal Medicine; ATTEND Family Medicine
PROC: 009U3ZX Drainage of Spinal Canal, Percutaneous Approach, Diagnostic (ICD-10-PCS; principal; 2018-02-16)
DX: G92 Toxic encephalopathy (principal); E43 Unspecified severe protein-calorie malnutrition; F20.2 Catatonic schizophrenia; E87.1 Hypo-osmolality and hyponatremia; E87.2 Acidosis; E87.0 Hyperosmolality and hypernatremia; E87.6 Hypokalemia; E11.649 Type 2 diabetes mellitus with hypoglycemia without coma; F99 Mental disorder, not otherwise specified; R13.10 Dysphagia, unspecified; R56.9 Unspecified convulsions; D72.829 Elevated white blood cell count, unspecified; F41.9 Anxiety disorder, unspecified; Z79.899 Other long term (current) drug therapy; Z78.1 Physical restraint status; Z75.1 Person awaiting admission to adequate facility elsewhere; Z68.21 Body mass index [BMI] 21.0-21.9, adult
CPT/HCPCS: 36415; 70450; 70544; 70547; 70551; 71045; 80053; 80305; 80320; 81001; 82945; 82948; 83605; 83735; 84100; 84132; 84145; 84157; 85025; 86592; 86788; 86789; 87015; 87040; 87070; 87529; 89051; 92616; 96365; 96367; 96375; 96376; 99285; G0378; J0133; J0696; J1630; J2060; J2543; J3370; J3480; J3490; J7030; J7042; J7070; J7131; Q9963

== ENCOUNTER 2018-03-04 11:00 | Inpatient (IN) | payer MEDICARE, MEDICAID | END 2018-04-11 11:19 | disposition still patient (30) | LOC: ADULT MH 11:00 | DX: F20.0 Paranoid schizophrenia (principal); Z87.891 Personal history of nicotine dependence ==

== ENCOUNTER 2021-12-17 11:58 | Day surgery (SDC) | payer MEDICARE, MEDICAID ==
[~2021-12-17] VITALS: Ht 170.2 cm; Wt 89.5 kg
[~2021-12-17 11:58] MED LIST: ATI0.5T PO; ATI1T PO; CLOZ100T35 PO; CLOZ25TA12 PO; HALO5TAB PO; PROP10TA10 PO
[2021-12-17 12:15] VITALS: BP 113/84
[2021-12-17] MEDS ORDERED: FENTANYL CITRATE/PF 50 MCG/1 ML VIAL ONE (12:19)
[2021-12-17] MEDS ORDERED: diphenhydrAMINE 50 mg/ml inj ONE (12:20)
[2021-12-17] MEDS ORDERED: MIDAZolam 1 MG/ML 5ML VIAL ONE (12:20)
[2021-12-17] MEDS ORDERED: CLOZ200T24 (12:39)
[2021-12-17] MEDS ORDERED: FLUO10TA PO (12:40)
[2021-12-17] MEDS ORDERED: FENO145T26 PO (12:40)
[2021-12-17] MEDS ORDERED: DOCU240C26 PO (12:41)
[2021-12-17] MEDS ORDERED: OMEG-167 PO (12:42)
[2021-12-17] MEDS ORDERED: FAMO20TA8 PO (12:42)
[2021-12-17] MEDS ORDERED: TRAZ-251 PO (12:43)
[2021-12-17 13:35] VITALS: BP 113/73
[2021-12-17 13:45] VITALS: BP 120/74
[2021-12-17 13:55] VITALS: BP 114/76
[2021-12-17 14:05] VITALS: BP 112/69
== END 2021-12-17 14:10 | disposition home or self-care (01) ==
LOC: GI LAB 11:58
PROVIDERS: ATTEND Internal Medicine Gastroenterology
DX: D12.0 Benign neoplasm of cecum (principal); D12.2 Benign neoplasm of ascending colon; D12.3 Benign neoplasm of transverse colon; D12.4 Benign neoplasm of descending colon; K64.1 Second degree hemorrhoids; K57.30 Diverticulosis of large intestine without perforation or abscess without bleeding; Z79.899 Other long term (current) drug therapy; Z98.890 Other specified postprocedural states
CPT/HCPCS: 45385; 99153; G0500; J2250; J3010; J7030; Z7512; 99152; A4620; C1889; J1200

== ENCOUNTER 2023-09-08 11:03 | Outpatient (CLI) | payer MEDICARE, MEDICAID ==
[~2023-09-08 11:03] MED LIST changes: +CLOZ200T24; -CLOZ25TA12 PO; +DOCU240C26 PO; +FAMO20TA8 PO; +FENO145T26 PO; +FLUO10TA34 PO; +OMEG-167 PO; +TRAZ-251 PO
== END 2023-09-08 23:59 | disposition home or self-care (01) ==
LOC: RAD 11:03
PROVIDERS: ATTEND Neuromusculoskeletal Medicine & OMM
DX: R40.4 Transient alteration of awareness (principal)
CPT/HCPCS: 95816